=== PATIENT | male | born 1955 | race Caucasian/White ===

== ENCOUNTER 2016-06-05 15:52 | Observation (INO) | payer BC ==
--- NOTE | ~2016-06-05 | HP ---
History And Physical [place] [address] [facility] [place]. [address] NAME: CHRIS HUA : 55 STATUS : ADM IN PAT#: [id number] AGE: 61 ADM/REG DATE : 06/05/16 MR#: [id number] REPORT SERV DATE: 06/05/16 DICTATED BY: KHADAR FLETCHER DATE: 06/05/16 REPORT STATUS : Draft TRANSCRIBED BY: MODL DATE: 06/05/16 DATE OF ADMISSION: 06/05/2016 CARDIOLOGY H AND P REFERRING: Dr. Solitario from [facility]. REFERRING REASON: Resting chest pain. HISTORY OF PRESENT ILLNESS: This is a 61-year-old white gentleman, well known to Dr. Tip Vivar from [facility] who is being recently seen by him on 05/21/2016 at [facility]. He has 3 months lasting episodes of poorly defined chest pain of unclear etiology. The patient reportedly has been in his usual state of health and woke up earlier today with chest pressure substernally without any radiation and also some shortness of breath and diaphoresis. He decided to be seen in [facility]. His first enzymes were negative. Chest x-ray has not revealed any acute pathology and electrocardiogram was sinus rhythm with chronic right bundle branch block, old inferior CO, and no acute ST-T changes. We have been called and asked for the transfer. Of note, his pain has not reacted to nitroglycerin. On arrival, he is chest pain-free and he is complaining of back pain. The patient has known coronary artery disease with remote history of CABG in 2008 with several PCIs subsequently, last one in 2011. He has a history of low normal systolic function with EF 50% in 2009 with last coronary arteriogram in 2014 which revealed patent grafts. He also has nuclear PET stress in March 2016 which was negative for ischemia. 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 He has been reportedly followed by Dr. Araujo for some back pain with some inconclusive workup of his spine including MRI. Outside MRI per patient's report suggested some inflammatory changes in the sternum. The patient has been started on indomethacin by Dr. Vivar but he discontinued it due to the development of shortness of breath and tinnitus and general weakness. His PCP recently started him on naproxen but the patient stated that it is not helping, it is poorly defined, mostly exertional, substernal dull pain which resolved by itself. It can be several times a day. He has a remote history of smoking, chronic kidney disease, hypertension, and hyperlipidemia. The patient is currently hemodynamically stable without chest pain but with some upper back pain. He remains in normal sinus rhythm. PAST MEDICAL HISTORY: 1. Coronary artery disease. Remote history of CO and CABG in 2008 with the last PCI in 2011 and last coronary arteriogram in 2014 showing most of his grafts were being patent. 2. Low risk nuclear PET stress in March 2016. 3. History of preserved systolic function with EF 50% in 2009. 4. Hypertension and hyperlipidemia. History And Physical [address] [address] NAME: CHRIS HUA : 55 STATUS : ADM IN [facility]#: [id number] AGE: 61 ADM/REG DATE : 06/05/16 MR#: [id number] REPORT SERV DATE: 06/05/16 DICTATED BY: KHADAR FLETCHER DATE: 06/05/16 REPORT STATUS : Draft TRANSCRIBED BY: KENAN DATE: 06/05/16 5. Chronic kidney disease with mild elevation in creatinine recently and likely due to naproxen. 6. History of headaches. 7. Chronic back pain. ALLERGIES: THE PATIENT REPORTED ACETAMINOPHEN AND OXYCODONE. SOCIAL HISTORY: He is . He worked previously as a security ambassador. Currently he is not working for the last three months due to reportedly of chest pain and back pain. He quit smoking in 2008, smoked for many years. Denies drinking alcohol or using street drugs. He is walking without any support. FAMILY HISTORY: Negative for sudden cardiac or premature coronary artery disease in the family. HOME MEDICATIONS: Amlodipine 10 mg once a day; aspirin 81 mg once a day; atorvastatin 80 mg once a day; clonazepam 1 mg twice a day; Plavix 75 mg once a day; fenofibrate 135 mg once a day; metoprolol tartrate 25 mg twice a day; nitroglycerin p.r.n.; Ramipril 10 mg once a day; Ranexa 500 mg twice a day; tramadol 50 mg as needed; and Tylenol as needed, despite the patient reported to be allergic to it. He was recently taking naproxen of unknown dose by PCP. PHYSICAL EXAMINATION: GENERAL: No acute distress. VITAL SIGNS: Blood pressure 129/89, heart rate 80 and regular. The patient is able to lie flat without any difficulties. HEENT: Pupils reactive to light and accommodation. Moist mucosa membrane. NECK: No JVD. Normal carotid upstroke. No carotid bruits. LUNGS: Decreased breath sounds observed but no crackles. There is no palpation tenderness over his sternum. COR: Normal S1, S2. No S3 or S4. No significant rub or murmurs. ABDOMEN: Soft, nontender, nondistended. EXTREMITIES: No edema. Pedal pulses strong and equal bilaterally. SKIN: Warm with normal turgor. MUSCULOSKELETAL: No kyphosis. NEUROLOGIC/PSYCHIATRIC: Alert and oriented. Nonfocal. DATA: Outside creatinine was mildly elevated at 1.6. Otherwise the rest of the electrolytes were normal x1. Negative troponin from outside institution. Chest x-ray, outside, no acute pathology. CBC outside reportedly normal. Electrocardiogram outside revealed normal sinus rhythm with chronic right bundle-branch block here, normal sinus rhythm at 75 beats per minute with right bundle branch block with Q-wave in leads III and aVF which is chronic. ASSESSMENT AND PLAN: 1. Poorly defined reportedly exertional chest pain with some resting episode earlier today of unclear etiology. 2. Coronary artery disease with remote history of CABG and recent low risk PET stress. History And Physical [address] [place]. [address] NAME: CHRIS HUA : 55 STATUS : ADM IN [facility]#: [id number] AGE: 61 ADM/REG DATE : 06/05/16 MR#: [id number] REPORT SERV DATE: 06/05/16 DICTATED BY: KHADAR FLETCHER DATE: 06/05/16 REPORT STATUS : Draft TRANSCRIBED BY: MODPedro DATE: 06/05/16 3. Back pain. Under this picture, etiology of the patient's chest pain is unclear. We will follow closely cardiac enzymes, CBC, and electrolytes. He is currently pain-free and hemodynamically stable. Based on the recent negative PET stress, the probability of worsening obstructive CAD is low. There is no obvious palpation tenderness over his chest. We will do a CT of the chest to exclude any other abnormalities behind the sternum but we will not use contrast due to his chronic kidney disease. The patient declined to continue naproxen. The patient will follow up with Dr. Vivar. Of note, he stated that the nitroglycerin is not helping his pain and we will continue however Ranexa for now. Consideration will be to increase the dose of Ranexa if indeed he may have angina. Code status is full. OJL/MODL Khadar Fletcher M.D. / [id number] CC: Khadar Fletcher M.D.
[~2016-06-05 15:52] MED LIST: ACET500CAP PO; ALTACE10 MG PO; ASA5GR PO; CENTRUM TAB1 TAB PO; CRESTOR40 MG PO; KLONO1 PO; KLOR-CON M1010 MEQ PO; LIPITOR40 PO; LIPITOR80 MG PO; LOP25 PO; LOP50 PO; MEDROLPAK4 PO; MULTIPLE VIT PO; NITROSTAT0.4 MG SL; NORCO1 TAB PO; NORV10 PO; NORV25 PO; PLAVIX PO; PR25 PO; TRILIPIX135 MG PO; VITE PO; Z-PAK PO; [UNRECOGNIZED DRUG - REMARK] PO
[2016-06-05] MEDS ORDERED: LIPITOR80 MG PO ×2 (18:48→22:02)
[2016-06-05] MEDS ORDERED: FLOMAX4 PO ×2 (18:48→22:05)
[2016-06-05] MEDS ORDERED: NAP500 PO ×2 (18:49→22:04)
[2016-06-05] MEDS ORDERED: ULTRAM50 PO ×2 (18:49→22:05)
[2016-06-05] MEDS ORDERED: RAN500 PO ×2 (18:50→22:05)
[2016-06-05] MEDS ORDERED: NORV10 PO (22:02)
[2016-06-05] MEDS ORDERED: KLONO1 PO (22:02)
[2016-06-05] MEDS ORDERED: PLAVIX PO (22:03)
[2016-06-05] MEDS ORDERED: TRILIPIX135 MG PO (22:03)
[2016-06-05] MEDS ORDERED: NITROSTAT0.4 MG SL (22:04)
[2016-06-05] MEDS ORDERED: LOP50 PO (22:04)
[2016-06-05] MEDS ORDERED: LOP25 PO (22:04)
[2016-06-05] MEDS ORDERED: ALTACE10 MG PO (22:05)
[2016-06-05] MEDS ORDERED: [UNRECOGNIZED DRUG - REMARK] PO (22:06)
[2016-06-06 05:46] LABS: CALCIUM, SERUM 8.7 MG/DL (8.5-10.4); CHLORIDE, SERUM 105 MMOL/L (96-112); CO2 (CARBON DIOXIDE) 28 MMOL/L (24-34); CREATININE 1.68 MG/DL (0.70-1.30); GFR AFRICAN AMERICAN 50 ML/MIN (>=60); GFR NON AFRICAN AMERICAN 43 ML/MIN (>=60); POTASSIUM, SERUM 4.1 MMOL/L (3.5-5.3); SODIUM, SERUM 143 MMOL/L (135-148)
[2016-06-06 05:47] LABS: BUN (BLOOD UREA NITROGEN) 20 MG/DL (6-23); GLUCOSE, SERUM 137 MG/DL (60-99)
[2016-06-06] MEDS ORDERED: ASAB PO (16:21)
== END 2016-06-06 16:49 | disposition home or self-care (01) ==
LOC: CDU1 15:52
PROVIDERS: Internal Medicine Cardiovascular Disease
DX: R07.9 Chest pain, unspecified (principal); I25.10 Atherosclerotic heart disease of native coronary artery without angina pectoris; I12.9 Hypertensive chronic kidney disease with stage 1 through stage 4 chronic kidney disease, or unspecified chronic kidney disease; E78.5 Hyperlipidemia, unspecified; N18.2 Chronic kidney disease, stage 2 (mild); Z79.82 Long term (current) use of aspirin; Z79.02 Long term (current) use of antithrombotics/antiplatelets; Z79.899 Other long term (current) drug therapy; Z79.1 Long term (current) use of non-steroidal anti-inflammatories (NSAID)
CPT/HCPCS: 71250; 80048; 84484; 93005; 96374; 96376; A9270-GY; G0378

== ENCOUNTER 2016-06-23 01:35 | Inpatient (IN) | payer BC ==
--- NOTE | ~2016-06-23 | HP ---
History And Physical [place] [id number] [facility] [place]. [address] NAME: CHRIS HUA : 55 STATUS : ADM Yony PAT#: [id number] AGE: 61 ADM/REG DATE : 06/23/16 MR#: [id number] REPORT SERV DATE: 06/23/16 DICTATED BY: RAJAN ZAPATA DATE: 06/23/16 REPORT STATUS : Draft TRANSCRIBED BY: MODL DATE: 06/23/16 DATE OF ADMISSION: 06/23/2016 CARDIOLOGY ADMISSION HISTORY AND PHYSICAL IDENTIFYING DATA: The patient is a 61-year-old man with known coronary heart disease and chronic angina. CHIEF COMPLAINT: Worsening back pain and chest pain over the last 24 to 48 hours. HISTORY OF PRESENT ILLNESS: Mr. Hua is a 61-year-old man with multiple medical problems, which include stage 2-3 chronic kidney disease, hypertension, dyslipidemia, and known coronary heart disease, status post coronary artery bypass grafting surgery x5 in the year 2008 with subsequent multiple percutaneous coronary interventions. The patient has had a roughly 2-year history of exertional chest pain and back pain. The patient's symptoms are somewhat different from his index angina, which has been treated with percutaneous coronary intervention in the past. Specifically, the patient's index chest pain was a burning substernal chest pain which occurred with exertion. The patient's presenting complaint is more of a back pain, which radiates to his chest. However, the patient reports that his back pain is exacerbated by exercise, and that the patient has had a progressively worsening exercise capacity over the last two years. The patient is currently unable to work for reasons of chest pain. He has been evaluated by Dr. Araujo for his back pain with multiple MRI scans. Apparently, the patient's back pain is not felt to be due to any specific surgically treatable anatomic problem. It is felt that the patient's symptoms may very well be related to progression of his coronary heart disease. The patient is followed by Dr. Alexander as well as Dr. Vivar. The patient did undergo a myocardial perfusion imaging study/stress test/PET scan in late 03/2016. This showed no evidence of myocardial ischemia. The patient reports that, he has continued to have severe progressive exertional chest pain. Yesterday, the patient had onset of chest pain, which was unrelieved with rest or nitroglycerin. He therefore presented to the emergency room. The patient reports, he continues to have back pain and chest pain at this time. PAST MEDICAL HISTORY: 1. Coronary artery disease, status post PCI and coronary artery bypass grafting surgery as described above. 2. Chronic angina. 3. Stage 2-3 chronic kidney disease. 4. Hypertension. 5. Dyslipidemia. 6. History of pancreatitis. 7. History of headache disorder. 8. Chronic back pain. PAST SURGICAL HISTORY: Coronary artery bypass graft surgery and multiple PCIs. Otherwise, History And Physical [address] [address] NAME: CHRIS HUA : 55 STATUS : ADM Yony PAT#: [id number] AGE: 61 ADM/REG DATE : 06/23/16 MR#: [id number] REPORT SERV DATE: 06/23/16 DICTATED BY: RAJAN ZAPATA DATE: 06/23/16 REPORT STATUS : Draft TRANSCRIBED BY: KENAN DATE: 06/23/16 noncontributory. FAMILY HISTORY: The patient's father suffered myocardial infarction, though at the advanced age of 77. There is no family history of early coronary heart disease or sudden cardiac . SOCIAL HISTORY: The patient was a one pack per day x30 years smoker, but stopped in year 2008. He drinks alcohol occasionally. He is . He denies recreational drug use. ALLERGIES: OXYCODONE, INDOMETHACIN, GLIPIZIDE, AND ALBUTEROL. HOME MEDICATIONS: 1. Amlodipine 10 mg p.o. q.a.m. 2. Aspirin 81 mg daily. 3. Atorvastatin 80 mg p.o. at bedtime. 4. Klonopin 1 mg p.o. twice daily as needed. 5. Plavix 75 mg p.o. daily. 6. Trilipix 135 mg p.o. q.a.m. 7. Metoprolol tartrate 25 mg p.o. q.p.m. and 50 mg p.o. q.a.m. 8. Sublingual nitroglycerin 0.4 mg as needed for chest pain. 9. Ramipril 8 mg p.o. twice daily. 10.Ranexa 500 mg p.o. twice daily - the patient apparently is not taking this medication at this time. 11.Tamsulosin 0.4 mg p.o. twice daily. 12.Tramadol 50 mg p.o. three times daily as needed. 13.[id number] supplement for leg cramping, not otherwise specified. REVIEW OF SYSTEMS: A complete 12-system review was performed. This is noncontributory except for the pertinent positives and negatives noted in the history of present illness above. PHYSICAL EXAMINATION: VITAL SIGNS: Temperature is 96.6 degrees Fahrenheit, blood pressure is 120/75 mmHg, heart rate is 71 beats per minute and regular, respirations 18, and oxygen saturation is 94% on room air. CONSTITUTIONAL: The patient is a well-nourished, well-developed white man in no acute distress. EYES: PERRL, EOMI, clear conjunctiva. HEAD/MNT: NCAT with moist mucous membranes and grossly normal hard and soft palate. NECK: Supple with no obvious thyromegaly or lymphadenopathy CARDIOVASCULAR: There is a regular rhythm with a normal S1 and a widely split second heart sound. No significant murmurs, rubs, or gallops are noted. The jugular venous pressure is normal. PULMONARY: Clear to auscultation bilaterally with no wheezing, rales, rhonchi, or dullness to percussion. ANTERIOR CHEST WALL: A median sternotomy wound is noted. This appears well healed with a stable sternum. History And Physical [address] [place]. [address] NAME: CHRIS HUA : 55 STATUS : ADM Yony PAT#: [id number] AGE: 61 ADM/REG DATE : 06/23/16 MR#: [id number] REPORT SERV DATE: 06/23/16 DICTATED BY: RAJAN ZAPATA DATE: 06/23/16 REPORT STATUS : Draft TRANSCRIBED BY: KENAN DATE: 06/23/16 ABDOMINAL: Soft, non-tender, non-distended with no hepatosplenomegaly noted. EXTREMITIES: No clubbing, cyanosis or edema. MUSCULOSKELETAL: Grossly normal strength and range of motion in all extremities INTEGUMENTARY: Skin appears intact with no bruises, wounds or active lesions noted NEURO/PSYC: Alert and oriented x3, with no dysarthria, facial droop or lateralizing weakness noted. 12-LEAD EKG: The patient's 12-lead EKG shows normal sinus rhythm with a right bundle-branch block pattern. There are nonspecific ST/T-wave abnormalities. LABORATORY DATA: Sodium is 145, potassium 3.8, chloride is 112, BUN 25, creatinine is 1.6, glucose is 160. Cell count show a white blood cell count of 7.0, hemoglobin 12, hematocrit 34, platelets 229. INR is 1.1. Troponin is less than 0.02. B-type natriuretic peptide is 32. Chest x-ray shows decreased lung volumes with no acute cardiopulmonary process. ASSESSMENT AND PLAN: 1. Crescendo angina: At this time, the patient is on a fairly aggressive antianginal regimen. He is unable to tolerate long acting nitrates due to headache. His renal function would probably not allow up titration of Ranexa, which the patient is not taking any way for reasons of cost. I have discussed risks and benefits of cardiac catheterization with the patient. Given the progression of the patient's symptoms, he agrees to proceed with coronary angiography. The patient has an atretic CHRISTIAN graft comma and requests radial catheterization due to apparent previous groin pain/groin issues as result of cardiac catheterization. The patient will be scheduled for tomorrow to allow Nephrology evaluation for the patient's chronic kidney disease. 2. Stage 2-3 chronic kidney disease: The patient's baseline creatinine is apparently 1.3. His current creatinine is 1.6, though it has been as high as 1. 7 in the past. The patient reports that, he is not followed by Nephrology, and has not had a thorough Nephrology evaluation. I will request a Nephrology evaluation prior to cardiac catheterization, to ensure that no further workup needs to be completed to reduce the risk of contrast nephropathy. 3. Chronic back pain: The patient is requesting pain medications, we will treat temporarily with Vicodin. We will consider referral back to Orthopedic surgery, if the patient's coronary angiogram is unrevealing. [facility]/MODL Rajan Zapata MD / [id number] History And Physical [address] [address] NAME: CHRIS HUA : 55 STATUS : ADM Yony PAT#: [id number] AGE: 61 ADM/REG DATE : 06/23/16 MR#: [id number] REPORT SERV DATE: 06/23/16 DICTATED BY: RAJAN ZAPATA DATE: 06/23/16 REPORT STATUS : Draft TRANSCRIBED BY: MODPedro DATE: 06/23/16 CC: Rodger Briceño M.D.
--- NOTE | ~2016-06-23 | CN ---
Consultation Report [facility] [address] [place]. [address] NAME: CHRIS HUA : 55 STATUS : ADM Yony PAT#: [id number] AGE: 61 ADM/REG DATE : 06/23/16 MR#: [id number] REPORT SERV DATE: 06/23/16 DICTATED BY: DELROY SAMSON DATE: 06/23/16 REPORT STATUS : Draft TRANSCRIBED BY: MODL DATE: 06/23/16 NEPHROLOGY CONSULTATION DATE OF CONSULTATION: 06/23/2016 REASON FOR CONSULT: Contrast nephropathy prophylaxis/CKD. HISTORY OF PRESENT ILLNESS: Mr. Hua is a 61-year-old white male who has chronic kidney disease with baseline creatinine 1.4-1.9 since 11/2011. He was previously seen once in our office by Dr. Miller in 02/2015, at which time, creatinine was 1.6 and urinalysis showed no blood or protein. Renal ultrasound, 01/2015, showed right kidney 9.9 cm, left kidney 10.9 cm without obstruction. He was admitted earlier today with exertional chest pain that has been worsening. Troponin has been negative x2 and he is tentatively scheduled for cardiac catheterization tomorrow. He has a history of previous bypass and stents. PAST MEDICAL HISTORY: 1. Chronic kidney disease, baseline creatinine 1.4-1.9. 2. BPH without TURP. 3. CABG x5 in 2008 with subsequent PCI. EF was normal by CREF, 09/2014. 4. Hypertension, on TOM inhibitor. 5. Hyperlipidemia. 6. Diet-controlled diabetes without medication. CURRENT MEDICATIONS: Include Norvasc 10 mg a day, Lipitor, Plavix, Pepcid, Lofibra, Ranexa, Flomax, and Altace 10 mg b.i.d. IV heparin is infusing. FAMILY HISTORY: No ESRD. Father did have chronic kidney disease. SOCIAL HISTORY: Former smoker. . Works for the [employer]. Lives in [place], [place]. REVIEW OF SYSTEMS: Significant for chronic nocturia every two hours, BPH without TURP, no OTC NSAID use. Previous bypass surgery. PHYSICAL EXAMINATION: VITAL SIGNS: Temperature 96.7, pulse 60, respirations 16, blood pressure 108/72, 95% saturation on room air. GENERAL: He is a pleasant middle-aged white male, awake, alert, oriented, and cooperative with the exam, in no distress. Lying in his hospital bed. NEURO: Grossly nonfocal. HEENT: Sclerae without icterus. Conjunctivae not injected. Oropharynx is clear. Mucous Consultation Report [facility] [address] [place]. [address] NAME: CHRIS HUA : 55 STATUS : ADM Yony PAT#: [id number] AGE: 61 ADM/REG DATE : 06/23/16 MR#: [id number] REPORT SERV DATE: 06/23/16 DICTATED BY: DELROY SAMSON DATE: 06/23/16 REPORT STATUS : Draft TRANSCRIBED BY: MODL DATE: 06/23/16 membranes are dry. No JVD. LUNGS: Bilateral rhonchi without dyspnea on room air. CARDIAC: Regular rate and rhythm. No rub. ABDOMEN: Soft, nontender, nondistended. Bowel sounds present throughout. No rebound or guarding. EXTREMITIES: Without edema. SKIN: Without rash or livedo. There is no [place] catheter in place. : Deferred. MUSCULOSKELETAL: Shows no active gout. PSYCH: Mood and affect are appropriate. LABORATORY DATA: Sodium 145, potassium 3.8, bicarb 26, BUN 25, creatinine 1.6. GFR 46 mL/minute. Calcium 8.1, magnesium 2.2. White count 7000, hemoglobin 11.8, platelets 220,000. INR 1.1. ASSESSMENT/PLAN: Mr. Hua has stage 3 chronic kidney disease, coronary artery disease with previous bypass surgery, hypertension, presents with chest pain and negative troponin. Renal function appears to be stable and at previous baseline dating back for several years. Hold TOM inhibitor in preparation for cardiac catheterization tomorrow. Gentle normal saline IV fluid hydration. If labs are stable, tomorrow would proceed with cardiac catheterization. Discussion today with patient and family regarding risk of contrast nephropathy. We will watch labs, provide supportive care, and follow closely. MARYANA/KENAN Delroy Samson M.D. / [id number] CC: Ondrej Rodger Hogan M.D. Brant Holt, M.D.
[~2016-06-23 01:35] MED LIST changes: +ASAB PO; +FLOMAX4 PO; +NAP500 PO; +RAN500 PO; +ULTRAM50 PO; +[UNRECOGNIZED DRUG - REMARK] PO
[2016-06-23] MEDS ORDERED: PLAVIX PO (02:16)
[2016-06-23] MEDS ORDERED: KLONO1 PO (02:17)
[2016-06-23] MEDS ORDERED: ULTRAM50 PO (02:19)
[2016-06-23] MEDS ORDERED: LOP50 PO (02:20)
[2016-06-23] MEDS ORDERED: LOP25 PO (02:20)
[2016-06-23] MEDS ORDERED: ALTACE10 MG PO (02:21)
[2016-06-23] MEDS ORDERED: FLOMAX4 PO (02:21)
[2016-06-23] MEDS ORDERED: LIPITOR80 MG PO (02:22)
[2016-06-23] MEDS ORDERED: TRILIPIX135 MG PO (02:22)
[2016-06-23] MEDS ORDERED: NITROSTAT0.4 MG SL (02:23)
[2016-06-23] MEDS ORDERED: NORV10 PO (02:23)
[2016-06-23] MEDS ORDERED: RAN500 PO (02:31)
[2016-06-23] MEDS ORDERED: ASAB PO (02:34)
[2016-06-23] MEDS ORDERED: [UNRECOGNIZED DRUG - REMARK] PO (02:34)
[2016-06-23 02:59] LABS: BASOPHILS 0.6 %; BASOPHILS ABSOLUTE 0.04 10/3/uL (0.0-0.16); EOSINOPHILS 5.5 %; EOSINOPHILS ABSOLUTE 0.38 10/3/uL (0.0-0.53); HEMOGLOBIN 11.8 g/dL (13.6-17.8); IMMATURE GRANULOCYTES 0.7 %; IMMATURE GRANULOCYTES ABSOLUTE 0.05 10/3/uL (0.0-0.11); LYMPHOCYTES 43.1 %; MEAN CORPUS HGB CONC 34.4 g/dL (32.0-36.0); MEAN CORPUSCULAR HEMOGLOB 31.6 pg (26.0-34.0); MEAN PLATELET VOLUME 9.7 fL (9.2-13.0); MONOCYTES 5.9 %; MONOCYTES ABSOLUTE 0.41 10/3/uL (0.21-1.20); NEUTROPHILS 44.2 %; NEUTROPHILS ABSOLUTE 3.08 10/3/uL (2.02-8.40); PLATELET COUNT 220 10/3/uL (150-400); RBC DISTRIBUTION WIDTH 15.5 % (12.0-16.0); RED CELL COUNT 3.73 10/6/uL (4.7-6.1)
[2016-06-23 03:00] LABS: HEMATOCRIT 34.3 % (40.0-51.0); MANUAL DIFF NO %
[2016-06-23 03:15] LABS: CALCIUM, SERUM 8.1 MG/DL (8.5-10.4); CHLORIDE, SERUM 112 MMOL/L (96-112); CO2 (CARBON DIOXIDE) 26 MMOL/L (24-34); GFR AFRICAN AMERICAN 53 ML/MIN (>=60); GFR NON AFRICAN AMERICAN 46 ML/MIN (>=60); POTASSIUM, SERUM 3.8 MMOL/L (3.5-5.3); SODIUM, SERUM 145 MMOL/L (135-148); TROPONIN I <0.02 NG/ML (<0.05)
[2016-06-23 03:18] LABS: BUN (BLOOD UREA NITROGEN) 25 MG/DL (6-23)
[2016-06-23 03:19] LABS: GLUCOSE, SERUM 160 MG/DL (60-99)
[2016-06-23 04:49] LABS: INTERNATIONAL NORMAL RATI 1.1 UNITS (-); PROTIME (NOT ORD) 13.9 SEC (12.0-14.5)
[2016-06-23 04:50] LABS: PARTIAL THROMBO TIME 35.4 SEC (22.5-37.2)
[2016-06-23 05:22] LABS: ASCORBIC ACID (UR NOT ORDER) NEG (NEG); BILIRUBIN, URINE NEGATIVE (NEG); KETONE, URINE NEGATIVE (NEG); LEUKOCYTE ESTERASE(NOT OR NEG (NEG); WBC (NOT ORDERED) (RFLEX) < 1 (0-5)
[2016-06-23 10:26] LABS: CHOL/HDL RATIO(NOT ORDER) 4.1 (0-5); CHOLESTEROL 124 MG/DL (< 200); HDL CHOLESTEROL 30 MG/DL (> 39); LDL CHOLESTEROL 67 MG/DL (< 130); NON-HDL CHOLESTEROL 94 MG/DL (< 160); SGPT(ALT) 39 U/L (5-65); TRIGLYCERIDE 138 MG/DL (< 150); TROPONIN I <0.02 NG/ML (<0.05)
[2016-06-24 06:20] LABS: BASOPHILS 0.7 %; BASOPHILS ABSOLUTE 0.04 10/3/uL (0.0-0.16); EOSINOPHILS 6.2 %; EOSINOPHILS ABSOLUTE 0.37 10/3/uL (0.0-0.53); HEMATOCRIT 32.6 % (40.0-51.0); HEMOGLOBIN 11.2 g/dL (13.6-17.8); IMMATURE GRANULOCYTES 0.7 %; IMMATURE GRANULOCYTES ABSOLUTE 0.04 10/3/uL (0.0-0.11); LYMPHOCYTES 41.6 %; MEAN CORPUS HGB CONC 34.4 g/dL (32.0-36.0); MEAN CORPUSCULAR HEMOGLOB 30.9 pg (26.0-34.0); MEAN CORPUSCULAR VOLUME 90.1 fL (80-100); MEAN PLATELET VOLUME 9.8 fL (9.2-13.0); MONOCYTES ABSOLUTE 0.42 10/3/uL (0.21-1.20); NEUTROPHILS 43.8 %; NEUTROPHILS ABSOLUTE 2.64 10/3/uL (2.02-8.40); PLATELET COUNT 193 10/3/uL (150-400); RBC DISTRIBUTION WIDTH 15.8 % (12.0-16.0); RED CELL COUNT 3.62 10/6/uL (4.7-6.1)
[2016-06-24 06:25] LABS: INTERNATIONAL NORMAL RATI 1.2 UNITS (-); PROTIME (NOT ORD) 14.7 SEC (12.0-14.5)
[2016-06-24 06:27] LABS: MANUAL DIFF NO %
[2016-06-24 06:36] LABS: BUN (BLOOD UREA NITROGEN) 16 MG/DL (6-23); CALCIUM, SERUM 8.4 MG/DL (8.5-10.4); CHLORIDE, SERUM 107 MMOL/L (96-112); CHOL/HDL RATIO(NOT ORDER) 3.7 (0-5); CHOLESTEROL 114 MG/DL (< 200); CO2 (CARBON DIOXIDE) 25 MMOL/L (24-34); CREATININE 1.44 MG/DL (0.70-1.30); GFR AFRICAN AMERICAN 60 ML/MIN (>=60); GFR NON AFRICAN AMERICAN 52 ML/MIN (>=60); GLUCOSE, SERUM 129 MG/DL (60-99); HDL CHOLESTEROL 31 MG/DL (> 39); LDL CHOLESTEROL 45 MG/DL (< 130); NON-HDL CHOLESTEROL 83 MG/DL (< 160); POTASSIUM, SERUM 3.9 MMOL/L (3.5-5.3); SODIUM, SERUM 142 MMOL/L (135-148); TRIGLYCERIDE 190 MG/DL (< 150)
[2016-06-25 06:27] LABS: BASOPHILS 1.5 %; BASOPHILS ABSOLUTE 0.07 10/3/uL (0.0-0.16); EOSINOPHILS 6.5 %; EOSINOPHILS ABSOLUTE 0.31 10/3/uL (0.0-0.53); HEMATOCRIT 33.9 % (40.0-51.0); HEMOGLOBIN 11.4 g/dL (13.6-17.8); IMMATURE GRANULOCYTES 0.8 %; IMMATURE GRANULOCYTES ABSOLUTE 0.04 10/3/uL (0.0-0.11); LYMPHOCYTES 29.4 %; LYMPHOCYTES ABSOLUTE 1.41 10/3/uL (0.67-4.30); MEAN CORPUS HGB CONC 33.6 g/dL (32.0-36.0); MEAN CORPUSCULAR HEMOGLOB 30.7 pg (26.0-34.0); MEAN CORPUSCULAR VOLUME 91.4 fL (80-100); MEAN PLATELET VOLUME 9.8 fL (9.2-13.0); MONOCYTES 10.2 %; MONOCYTES ABSOLUTE 0.49 10/3/uL (0.21-1.20); NEUTROPHILS 51.6 %; NEUTROPHILS ABSOLUTE 2.47 10/3/uL (2.02-8.40); PLATELET COUNT 199 10/3/uL (150-400); RED CELL COUNT 3.71 10/6/uL (4.7-6.1); WHITE BLOOD CELLS 4.8 10/3/uL (4.5-10.5)
[2016-06-25 06:33] LABS: MANUAL DIFF NO %
[2016-06-25 06:55] LABS: ALBUMIN 3.4 G/DL (3.5-5.0); CALCIUM, SERUM 8.8 MG/DL (8.5-10.4); CHLORIDE, SERUM 108 MMOL/L (96-112); CO2 (CARBON DIOXIDE) 23 MMOL/L (24-34); CREATININE 1.43 MG/DL (0.70-1.30); GFR AFRICAN AMERICAN 61 ML/MIN (>=60); GFR NON AFRICAN AMERICAN 52 ML/MIN (>=60); GLUCOSE, SERUM 110 MG/DL (60-99); PHOSPHORUS, SERUM 3.2 MG/DL (2.5-4.5); POTASSIUM, SERUM 3.9 MMOL/L (3.5-5.3); SODIUM, SERUM 143 MMOL/L (135-148)
[2016-06-25 06:56] LABS: BUN (BLOOD UREA NITROGEN) 12 MG/DL (6-23)
== END 2016-06-25 15:09 | disposition home or self-care (01) | DRG 287 ==
LOC: 5NO 01:35
PROVIDERS: Internal Medicine Cardiovascular Disease; Internal Medicine Nephrology
PROC: 4A023N7 Measurement of Cardiac Sampling and Pressure, Left Heart, Percutaneous Approach (ICD-10-PCS; principal; 2016-06-24)
PROC: B2111ZZ Fluoroscopy of Multiple Coronary Arteries using Low Osmolar Contrast (ICD-10-PCS; 2016-06-24)
PROC: B2131ZZ Fluoroscopy of Multiple Coronary Artery Bypass Grafts using Low Osmolar Contrast (ICD-10-PCS; 2016-06-24)
PROC: B2181ZZ Fluoroscopy of Left Internal Mammary Bypass Graft using Low Osmolar Contrast (ICD-10-PCS; 2016-06-24)
PROC: B2151ZZ Fluoroscopy of Left Heart using Low Osmolar Contrast (ICD-10-PCS; 2016-06-24)
DX: I25.710 Atherosclerosis of autologous vein coronary artery bypass graft(s) with unstable angina pectoris (principal); E11.22 Type 2 diabetes mellitus with diabetic chronic kidney disease; I25.82 Chronic total occlusion of coronary artery; I12.9 Hypertensive chronic kidney disease with stage 1 through stage 4 chronic kidney disease, or unspecified chronic kidney disease; N18.3 Chronic kidney disease, stage 3 (moderate); E78.5 Hyperlipidemia, unspecified; Z95.1 Presence of aortocoronary bypass graft; Z87.891 Personal history of nicotine dependence
CPT/HCPCS: 71010; 80048; 80061; 80069; 81001; 82962; 83735; 83880; 84460; 84484; 85025; 85610; 85730; 93005; 93459; 99152; 99153; A9270-GY; C1769; C1894; J2250; J3010; Q9967